=== PATIENT | female | born 1985 | race American Indian/Alaskan Native ===

== ENCOUNTER 2018-03-04 11:32 | Emergency (ER) | payer SELFPAY ==
[2018-03-04 12:01] VITALS: BP 114/66
[2018-03-04] MEDS ORDERED: TORADOL IM ONE (13:12)
--- NOTE | 2018-03-04 13:12 | Emergency Department Report ---
ED Back Pain/Injury HPI - General Chief Complaint: Back Pain/Injury Stated Complaint: BACK PAIN Time Seen by Provider: 03/04/18 13:11 Source: patient Limitations: No Limitations - History of Present Illness Initial Comments: This is a 32-year-old female nontoxic, well nourished in appearance, no acute signs of distress presents to the ED with c/o of acute on chronic back pain that radiates to right lower extremity. [place] a primary care doctor and had several x-rays and MRI which indicated lumbar herniated disc. Patient denies any new trauma. Patient denies any urinary symptoms. Denies any falls. Patient denies any bladder or bowel stability, chest pain, shortness of breath, fever, chills, nausea, vomiting, headache or stiff neck. Patient denies any drug allergies or significant past medical history. MD Complaint: back pain -: days(s) (3) Similar Symptoms Previously: Yes Radiation: right leg Severity: mild Severity scale (0 -10): 8 Quality: aching Consistency: intermittent Improves With: immobilization, supine, sitting upright Worsens With: movement, walking Associated Symptoms: denies other symptoms. denies: confusion, weakness, chest pain, numbness, difficulty walking, cough, difficulty urinating, diaphoresis, incontinence, fever/chills, constipation, headaches, abdominal pain, loss of appetite, malaise, nausea/vomiting, rash, seizure, shortness of breath, syncope - Related Data Previous Rx's Medication Instructions Recorded Last Taken Type Naproxen [Naprosyn] 500 mg PO Q8H PRN #30 tablet 03/04/18 Unknown Rx traMADol [Ultram] 50 mg PO Q6HR PRN #15 tablet 03/04/18 Unknown Rx Allergies Allergy/AdvReac Type Severity Reaction Status Date / Time latex Allergy Hives Verified 03/04/18 11:58 seafood Allergy Hives Uncoded 03/04/18 11:58 ED Review of Systems ROS: Stated complaint: BACK PAIN Other details as noted in HPI Constitutional: denies: chills, fever Eyes: denies: eye pain, eye discharge, vision change ENT: denies: ear pain, throat pain Respiratory: denies: cough, shortness of breath, wheezing Cardiovascular: denies: chest pain, palpitations Endocrine: no symptoms reported Gastrointestinal: denies: abdominal pain, nausea, diarrhea Genitourinary: denies: urgency, dysuria, discharge Musculoskeletal: back pain. denies: joint swelling, arthralgia Skin: denies: rash, lesions Neurological: denies: headache, weakness, paresthesias Psychiatric: denies: anxiety, depression Hematological/Lymphatic: denies: easy bleeding, easy bruising ED Past Medical Hx - Past Medical History Previous Medical History?: No - Surgical History Past Surgical History?: No - Medications Home Medications: Home Medications Medication Instructions Recorded Confirmed Last Taken Type Naproxen [Naprosyn] 500 mg PO Q8H PRN #30 tablet 03/04/18 Unknown Rx traMADol [Ultram] 50 mg PO Q6HR PRN #15 tablet 03/04/18 Unknown Rx ED Physical Exam - General Limitations: No Limitations General appearance: alert, in no apparent distress - Head Head exam: Present: atraumatic, normocephalic - Eye Eye exam: Present: normal appearance Pupils: Present: normal accommodation - ENT ENT exam: Present: normal exam, mucous membranes moist - Neck Neck exam: Present: normal inspection, full ROM - Respiratory Respiratory exam: Present: normal lung sounds bilaterally. Absent: respiratory distress, wheezes, rales, rhonchi, stridor, chest wall tenderness, accessory muscle use, decreased breath sounds - Cardiovascular Cardiovascular Exam: Present: regular rate, normal rhythm, normal heart sounds. Absent: bradycardia, tachycardia, irregular rhythm, systolic murmur, diastolic murmur, rubs, gallop - GI/Abdominal GI/Abdominal exam: Present: soft, normal bowel sounds - Extremities Exam Extremities exam: Present: normal inspection, full ROM, normal capillary refill - Back Exam Back exam: Present: normal inspection, full ROM, paraspinal tenderness (lumber region). Absent: tenderness, CVA tenderness (R), CVA tenderness (L), muscle spasm, vertebral tenderness, rash noted - Expanded Back Exam Expanded Back exam: Absent: saddle anesthesia Back exam: Negative Straight Leg Raising: Left, Right - Neurological Exam Neurological exam: Present: alert, oriented X3, normal gait - Psychiatric Psychiatric exam: Present: normal affect, normal mood - Skin Skin exam: Present: warm, dry, intact, normal color. Absent: rash ED Course Vital Signs 03/04/18 11:58 Temperature 97.9 F Pulse Rate 74 Respiratory 16 Rate Blood Pressure 114/66 O2 Sat by Pulse 99 Oximetry - Reevaluation(s) Reevaluation #1: 03/04/18 13:25 Patient is speaking in full sentences with no signs of distress noted. ED Medical Decision Making - Medical Decision Making This is a 32-year-old female that presents with sciatica and chronic low back pain. Patient stable was examined by me. There is no signs or symptoms of cauda equina syndrome. No urinary symptoms. Patient received Toradol 30 mg IM in the ED which stated that symptoms is improving subsided. Patient is discharged with Ultram and was referred to Follow-up with a primary care doctor in 3-5 days or if symptoms worsen and continue return to emergency room as soon as possible. At time of discharge, the patient does not seem toxic or ill in appearance. No acute signs of distress noted. Patient agrees to discharge treatment plan of care. No further questions noted by the patient. Critical care attestation.: If time is entered above; I have spent that time in minutes in the direct care of this critically ill patient, excluding procedure time. ED Disposition Clinical Impression: Sciatica Qualifiers: Laterality: right Qualified Code(s): M54.31 - Sciatica, right side Chronic back pain Qualifiers: Back pain location: low back pain Back pain laterality: right Sciatica presence : with sciatica Sciatica laterality: sciatica of right side Qualified Code(s): M54.41 - Lumbago with sciatica, right side; G89.29 - Other chronic pain Disposition: DC-01 TO HOME OR SELFCARE Is pt being admited?: No Does the pt Need Aspirin: No Condition: Stable Instructions: Sciatica (ED), Chronic Back Pain (ED), Tramadol (By mouth), Naproxen (By mouth) Additional Instructions: Follow-up with a primary care doctor in 3-5 days or if symptoms worsen and continue return to emergency room as soon as possible. Prescriptions: Naproxen [Naprosyn] 500 mg PO Q8H PRN #30 tablet PRN Reason: Pain traMADol [Ultram] 50 mg PO Q6HR PRN #15 tablet PRN Reason: Pain Referrals: PRIMARY CARE, [Primary Care Provider] - 3-5 Days TENISHA MEDINA MD [Staff Physician] - 3-5 Days [facility] [Outside] - 3-5 Days [facility] [Outside] - 3-5 Days AMANDA PAL MD [Staff Physician] - 3-5 Days Forms: Work/School Release Form(ED)
== END 2018-03-04 13:45 | disposition home or self-care (01) ==
LOC: ED 11:32
DX: M54.41 Lumbago with sciatica, right side (principal); Z91.040 Latex allergy status; Z91.013 Allergy to seafood
CPT/HCPCS: 96372; 99282; J1885

== ENCOUNTER 2018-03-06 21:42 | Emergency (ER) | payer SELFPAY ==
[2018-03-06 22:53] LABS: Basophils # (Auto) 0.1 K/mm3 (0.0-0.1); Basophils % (Auto) 0.7 % (0.0-1.8); Eosinophils # (Auto) 0.3 K/mm3 (0.0-0.4); Eosinophils % (Auto) 1.8 % (0.0-4.3); Hematocrit 44.5 % (30.3-42.9); Hemoglobin 14.7 gm/dl (10.1-14.3); Lymphocytes % (Auto) 17.9 % (13.4-35.0); Mean Corpuscular HGB Conc 33 % (30-34); Mean Corpuscular Hemoglobin 29 pg (28-32); Mean Corpuscular Volume 89 fl (79-97); Monocytes # (Auto) 1.1 K/mm3 (0.0-0.8); Monocytes % (Auto) 6.2 % (0.0-7.3); Platelet Count 235 K/mm3 (140-440); Red Blood Count 4.98 M/mm3 (3.65-5.03); Red Cell Distribution Width 13.9 % (13.2-15.2)
[2018-03-06 23:10] LABS: Alanine Aminotransferase 10 units/L (7-56); BUN/Creatinine Ratio 12; Blood Urea Nitrogen 12 mg/dL (7-17); Calcium 8.6 mg/dL (8.4-10.2); Hemolysis Index 10; Lipase 21 units/L (13-60)
[2018-03-07 00:56] VITALS: BP 105/61
--- NOTE | 2018-03-07 01:02 | Emergency Department Report ---
HPI - General Chief Complaint: Abdominal Pain Time Seen by Provider: 03/07/18 00:59 - HPI HPI: 32-year-old female presents to ED with right flank pain. Patient states symptoms started earlier today and radiates all the way to the pelvic area. Patient also noticed some right red blood in her urine. Patient has a shoe kidney stones status post stents. Patient denies any fever, chills, night sweats, nausea, vomiting. Patient has not taking any medications for his symptoms. She denies any alleviating factors but states movement doesn't exacerbating factor. Her last nausea cycle was about a month ago. ED Past Medical Hx - Past Medical History Hx Hypertension: No Hx CVA: No Additional medical history: kidney stones - Surgical History Additional Surgical History: lithotripsy,stents in right kidney-2008,2014 - Social History Smoking Status: Never Smoker Substance Use Type: None - Medications Home Medications: Home Medications Medication Instructions Recorded Confirmed Last Taken Type Naproxen [Naprosyn] 500 mg PO Q8H PRN #30 tablet 03/04/18 Unknown Rx traMADol [Ultram] 50 mg PO Q6HR PRN #15 tablet 03/04/18 Unknown Rx Cyclobenzaprine [Flexeril] 10 mg PO TID PRN #20 tablet 03/07/18 Unknown Rx Sulfamethoxazole/Trimethoprim 1 each PO BID #20 tablet 03/07/18 Unknown Rx [Bactrim Ds Tablet] ED Review of Systems ROS: Stated complaint: ABD PAIN; BLOOD IN URINE Other details as noted in HPI Comment: All other systems reviewed and negative Gastrointestinal: nausea, vomiting Genitourinary: dysuria. denies: urgency Skin: denies: rash, lesions Physical Exam - Physical Exam Vital Signs: Vital Signs 03/06/18 03/07/18 03/07/18 22:24 00:45 00:56 Temperature 98.6 F 98.3 F Pulse Rate 90 Respiratory 18 Rate Blood Pressure 116/70 105/61 O2 Sat by Pulse 100 100 Oximetry Physical Exam: - Physical Exam Physical Exam: - General Limitations: No Limitations General appearance: alert, in no apparent distress. - Head Head exam: Present: atraumatic, normocephalic - Eye Eye exam: Present: normal appearance - ENT ENT exam: Present: mucous membranes moist - Neck Neck exam: Present: normal inspection - Respiratory Respiratory exam: Present: normal lung sounds bilaterally. Absent: respiratory distress - Cardiovascular Cardiovascular Exam: Present: normal rhythm, normal rate. Absent: systolic murmur, diastolic murmur, rubs, gallop - GI/Abdominal GI/Abdominal exam: Present: soft, normal bowel sounds - Extremities Exam Extremities exam: Present: normal inspection - Back Exam Back exam: Present: normal inspection - Neurological Exam Neurological exam: Present: alert, oriented X3 - Psychiatric Psychiatric exam: normal affect and mood - Skin Skin exam: Present: warm, dry, intact, normal color. Absent: rash ED Course Vital Signs 03/06/18 03/07/18 03/07/18 22:24 00:45 00:56 Temperature 98.6 F 98.3 F Pulse Rate 90 Respiratory 18 Rate Blood Pressure 116/70 105/61 O2 Sat by Pulse 100 100 Oximetry - Reevaluation(s) Reevaluation #1: 03/07/18 06:[address] Noble about admitting patient but she recommended d/c home. ED Medical Decision Making - Lab Data Result diagrams: 03/06/18 22:32 03/06/18 22:32 Critical care attestation.: If time is entered above; I have spent that time in minutes in the direct care of this critically ill patient, excluding procedure time. ED Disposition Clinical Impression: Pyelonephritis Disposition: DC-01 TO HOME OR SELFCARE Is pt being admited?: No Does the pt Need Aspirin: No Condition: Stable Instructions: Abdominal Pain (ED) Prescriptions: Cyclobenzaprine [Flexeril] 10 mg PO TID PRN #20 tablet PRN Reason: Pain Sulfamethoxazole/Trimethoprim [Bactrim Ds Tablet] 1 each PO BID #20 tablet Referrals: KWAKU MEYER MD [Staff Physician] - 3-5 Days WILLY LANDAVERDE MD [Primary Care Provider] - 3-5 Days
[2018-03-07 01:13] LABS: HCG Qualitative,Urine Negative (Negative)
[2018-03-07] MEDS ORDERED: NACL 0.9% 1000 ML 1,000 ML IV ONE (01:14)
[2018-03-07 01:18] LABS: Bilirubin,Urine NEG (Negative); Blood,Urine LG (Negative); Color,Urine Red (Yellow); Mucus,Urine FEW /HPF; Urobilinogen,Urine < 2.0 mg/dL (<2.0)
[2018-03-07 01:20] LABS: RBC,Urine > 182.0 /HPF (0.0-6.0)
[2018-03-07] MEDS ORDERED: DILAUDID IV ONE (01:50)
[2018-03-07] MEDS ORDERED: ZOFRAN IV ONE (01:50)
--- NOTE | 2018-03-07 02:33 | Cat Scan Report ---
FINAL REPORT EXAM: CT ABDOMEN PELVIS WO CON HISTORY: RIGHT FLANK PAIN, SEVERE TECHNIQUE: Helical CT scan through the abdomen and pelvis without contrast. Images are reconstructed in the sagittal and coronal planes. PRIORS: None. FINDINGS: Solid organ and bowel evaluation is limited without intravenous contrast. Bowel evaluation is limited without oral contrast. Images through the lung bases show multiple left lower lobe pulmonary nodules. A nodule demonstrated on series 2, image 16 measures 8 mm and has central punctate calcification. There is a 9 mm nodule with central calcification demonstrated on series 2, image 19. There is a noncalcified posterior pleural-based nodule in extreme left lung base measuring 7 mm. There is a 7 mm noncalcified pleural-based nodule in the left costophrenic sulcus. There is a 5 mm noncalcified nodule demonstrated on series 2, image 17. The dome of the liver was not entirely included in the scan range. The visualized liver, gallbladder, pancreas, spleen and adrenal glands appear normal. There is moderate right hydronephrosis and ureterectasis without evidence of urolithiasis or ureterolithiasis. The bladder appears grossly normal. There is a 4 mm nonobstructing stone in the left kidney. There is no ureterolithiasis on the left. There are multiple phleboliths in the pelvis. The pelvic organs appear grossly normal. The stomach appears grossly within normal limits. There are no abnormally dilated loops of bowel or acute inflammatory changes. A normal-appearing appendix is identified. The abdominal aorta has a normal diameter. The bones and subcutaneous soft tissues are unremarkable for age. IMPRESSION: 1. Multiple nodules in the left lung base some of which have calcification. This may represent granulomatous disease of the metastatic disease cannot be excluded. Recommend evaluation with CT of the chest. 2. Moderate right hydronephrosis without obstructing lesion or stone identified. 3. 4 mm nonobstructing stone in the left kidney
[2018-03-07] MEDS ORDERED: ZOSYN/NS 3.375GM/50ML 3.375 GM/50 ML BAG IV SCH ×2 (06:00)
== END 2018-03-07 06:24 | disposition home or self-care (01) ==
LOC: ED 21:42
DX: N12 Tubulo-interstitial nephritis, not specified as acute or chronic (principal); Z91.013 Allergy to seafood; Z91.040 Latex allergy status
CPT/HCPCS: 36415; 74176; 80053; 81001; 81025; 83690; 85025; 96361; 96365; 96375; 99284; J1170; J2405; J2543; J7030